=== PATIENT | female | born 1950 | race Caucasian/White ===

== ENCOUNTER 2023-10-22 09:05 | Outpatient (RCR) | payer BC, SELFPAY | END 2023-10-22 23:59 | disposition home or self-care (01) | LOC: RPT 09:05 | PROVIDERS: ATTENDING PHYSICIAN Orthopaedic Surgery Hand Surgery; FAMILY PHYSICIAN Family Medicine | DX: Z47.89 Encounter for other orthopedic aftercare (principal); Z73.6 Limitation of activities due to disability; M25.511 Pain in right shoulder | CPT/HCPCS: 97010; 97110; 97140; 97162 ==

== ENCOUNTER 2023-11-19 09:14 | Outpatient (RCR) | payer BC, SELFPAY | END 2023-11-19 23:59 | disposition home or self-care (01) | LOC: RPT 09:14 | PROVIDERS: ATTENDING PHYSICIAN Orthopaedic Surgery Hand Surgery; FAMILY PHYSICIAN Family Medicine | DX: Z47.89 Encounter for other orthopedic aftercare (principal); Z73.6 Limitation of activities due to disability; M25.511 Pain in right shoulder; M62.81 Muscle weakness (generalized) | CPT/HCPCS: 97010; 97110; 97140 ==

== ENCOUNTER 2023-12-18 08:57 | Outpatient (RCR) | payer BC, SELFPAY | END 2023-12-18 23:59 | disposition home or self-care (01) | LOC: RPT 08:57 | PROVIDERS: ATTENDING PHYSICIAN Orthopaedic Surgery Hand Surgery; FAMILY PHYSICIAN Family Medicine | DX: Z47.89 Encounter for other orthopedic aftercare (principal); Z73.6 Limitation of activities due to disability; M25.511 Pain in right shoulder | CPT/HCPCS: 97010; 97110; 97140 ==

== ENCOUNTER 2024-01-14 13:09 | Outpatient (RCR) | payer BC, SELFPAY | END 2024-01-14 14:11 | disposition home or self-care (01) | LOC: RPT 13:09 | PROVIDERS: ATTENDING PHYSICIAN Orthopaedic Surgery Hand Surgery; FAMILY PHYSICIAN Family Medicine | DX: Z47.89 Encounter for other orthopedic aftercare (principal); Z73.6 Limitation of activities due to disability; M25.511 Pain in right shoulder | CPT/HCPCS: 97010; 97110 ==

== ENCOUNTER → 2024-03-16 17:01 | Outpatient (REF) | payer BC, SELFPAY | LOC: RAD 17:01 | PROVIDERS: ATTENDING PHYSICIAN Physician Assistant | DX: R10.11 Right upper quadrant pain (principal); R10.13 Epigastric pain | CPT/HCPCS: 76700 ==

== ENCOUNTER 2024-05-08 06:05 | Day surgery (SDC) | payer BC, SELFPAY ==
[2024-04-27 09:14] LABS: ALT (SGPT) 31 U/L (0-35); AST (SGOT) 29 U/L (14-36); Albumin 4.2 g/dl (3.5-5.0); Alkaline Phosphatase 104 U/L (38-126); Blood Urea Nitrogen 9 mg/dl (7-17); Calcium 9.7 mg/dl (8.4-10.2); Carbon Dioxide 28 mmol/L (22-30); Chloride 105 mmol/L (98-107); Glucose 94 mg/dl (70-99); Potassium 4.4 mmol/L (3.5-5.1); Sodium 141 mmol/L (135-145); Total Bilirubin 0.4 mg/dl (0.2-1.3); Total Protein 6.2 g/dl (6.3-8.2); eGFR > 60.00
[2024-04-27 09:18] LABS: Hematocrit 35.1 % (37.0-47.0); Hemoglobin 12.2 g/dL (12.0-16.0); Mean Corp Hgb Conc. 34.8 g/dL (33.0-37.0); Mean Corpuscular Hgb 33.1 pg (27.0-31.0); Mean Corpuscular Volume 95.1 fL (81.0-99.0); Platelet Count 209 10^3/uL (130-400); Red Blood Cell Count 3.69 10^6/uL (4.20-5.40); Red Cell Dist. Width 12.6 % (11.5-14.5); White Blood Cell Count 7.1 10^3/uL (4.8-10.8)
[2024-04-27 09:56] VITALS: BMI 31.0
[2024-05-08] VITALS (19 sets, daily range): BP systolic 110–145; BP diastolic 41–121
[2024-05-08] MEDS: TYLENOL 1000 MG PO (06:42)
[2024-05-08] MEDS: NORMOSOL-R 1000 IV ×2 (06:45→09:00)
--- NOTE | 2024-05-08 09:06 | W.IMMPOSTOP ---
Addendum entered and electronically signed by Zain Coe MD 05/08/24 15:24:
[facility]#[id number]
Original Note:
Surgical Immed Post Op Note
-
Primary Surgeon: Carolin
Assisting Surgeon: MO Traore
Pre-op Diagnosis: Choledocholithiasis
Post-op Diagnosis: Choledocholithiasis
Procedure Performed: Laparoscopic cholecystectomy
Anesthesia Type: General
Specimen / Cultures:
1. Gallbladder
Estimated Blood Loss: 3 cc
Complications: None
Operative Findings:
1. Normal appearing GB, mild wall thickening, duodenal adhesions taken down sharply
2. Critical view of safety
3. IOC with dilated CBD and persistent distal CBD filling defect
4. Duct with clips and Endoloop, artery with clips
GI notified, will need ERCP, timing TBD
[2024-05-08] MEDS: DILAUDID 0.25 MG IV (10:43)
--- NOTE | 2024-05-08 11:15 | PTCARENOTE ---
Pt received from the PACU via bed. Transport was w/o incident. Pt is AAOx3, HRR, Lungs clear, resp.easy, pulse ox is 96%RA. Pt's abd with 5 Lap sites well approximated with surgi glue, no drainage noted. Pt denies pain or nausea at this time. Pt
instructed on plan of care, and signs and symptoms to report to the nursing staff. Pt verbalized understanding of instructions. Call guevara is within reach.
[2024-05-08] MEDS: DILAUDID 0.5 MG IV (13:22)
--- NOTE | 2024-05-08 14:18 | CON.GI ---
Addendum entered and electronically signed by Aleisha Preciado MD 05/08/24 17:06:
I saw and examined the patient.
The GAS BOOSTER ENGINEER's note was reviewed and I agree with the note.
-- Choledocholithiasis noted in IOC today. Liver test normal. Nonobstructive
-- S/p lap lisa 05/08
-- GERD/hiatal hernia/EGJ outflow obstruction status post dilation 04/2023 ( )
plan
Diet as per surgical team
Monitor LFT
Plan for ERCP with removal of CBD stone on Saturday
Original Note:
Consultation
-
Date/Time Consultation Requested: 05/08/24 1200
Date/Time Consultation Performed: 05/08/24 1400
Requesting Provider: Dr. Coe
Performing Provider: Dr. Preciado/AP Perez
Reason for Consultation: choledocholithiasis
Medical History
Chief Complaint / HPI
Chief Complaint: symptomatic cholelithiasis
History of Present Illness:
73-year-old female with past medical history of GERD, hiatal hernia, EGJ outflow obstruction status post dilatation, colon polyps, hyperlipidemia, depression, RAD, narcolepsy, chronic back pain who was admitted for cholecystectomy after being found
to have symptomatic cholelithiasis. Patient had a laparoscopic cholecystectomy with intraoperative cholangiogram today that identified the presence of choledocholithiasis. We are asked to evaluate for the same. The patient states that she was
having intermittent epigastric/right upper quadrant pain that would radiate through to her back. This will be associated with nausea and sde colored stools. The patient is feeling well postsurgery. She is having some mild discomfort at the
present time. She denies any fevers, chills, vomiting, melena, hematochezia. She does have history of intermittent dysphagia in the past. She is due for a follow-up with Dr. Olsen and likely EGD in the future secondary to EGJ outflow obstruction
with dilatation required. The patient states she gets more of a spasm currently.
Past Medical History
Past Medical History: GERD, Hypercholesterolemia and Other (Hiatal hernia,EGJ outflow obstruction, colon polyps, depression, RAD, narcolepsy, chronic back pain)
Past Surgical History: Cholecystectomy and Other (Discectomy, spine fusion, oophorectomy, appendectomy, tonsillectomy, bilateral cataracts, right shoulder rotator cuff)
Social History
Tobacco: Former Smoker
Alcohol: None
Drug: None
Employment: Employed
Family History
Family History: Other (Mother history of colon cancer, no other family members with gastrointestinal malignancy or IBD)
Allergies / Home Medications
Allergy/AdvReac Type Severity Reaction Status Date / Time
prochlorperazine edisylate Allergy Severe Anaphylaxis Verified 05/08/24 06:21
[From Compazine]
prochlorperazine maleate Allergy Severe Anaphylaxis Verified 05/08/24 06:21
[From Compazine]
penicillin G Allergy Intermediate Rash Verified 05/08/24 06:21
Penicillins Allergy Intermediate Rash Verified 05/08/24 06:21
Sulfa (Sulfonamide Allergy Intermediate Rash Verified 05/08/24 06:21
Antibiotics)
sulfisoxazole Allergy Intermediate Rash Verified 05/08/24 06:21
�Medication �Instructions �Recorded
pantoprazole 40 mg tablet,delayed 40 mg PO DAILY 01/25/14
release
acetaminophen 300 mg-codeine 30 mg 0.5 - 1 tab PO Q6HPRN PRN pain 05/19/21
tablet
aspirin 81 mg chewable tablet 81 mg PO MOWEFR 05/19/21
fluoxetine 20 mg capsule 60 mg PO DAILY 05/19/21
vitamin E (dl, acetate) 180 mg 800 units PO DAILY 05/19/21
(400 unit) capsule
zolpidem 10 mg tablet 10 mg PO HS 05/19/21
Reseveretrol 1 cap PO DAILY 06/02/21
glucosamine 500 mg-chondroit 400 1 ea PO DAILY 06/02/21
mg-vit C 2 mg-smith 0.33 mg
capsule (Cosamin DS (with
manganese))
Saccharomyces boulardii 250 mg 250 mg PO DAILY 04/29/24
capsule (Florastor)
acetaminophen 500 mg tablet 500 - 1,000 mg PO Q6H PRN pain 04/29/24
famotidine 40 mg tablet 40 mg PO DAILY PRN GERD 04/29/24
wxojcjmm-mqqe-mkjm 8 mg-folic 400 1 tab PO DAILY 04/29/24
mcg-K 50 mcg-lutein 300 mcg tablet
(Centrum Silver Women)
rosuvastatin 10 mg tablet 10 mg PO DAILY 04/29/24
Review of Systems
-
All other systems: A 12 pt ROS was Negative except as stated above in HPI
Vital Signs
Temp Pulse Resp BP Pulse Ox
98.4 F 68 16 110/67 96
05/08/24 13:46 05/08/24 13:46 05/08/24 13:46 05/08/24 13:46 05/08/24 13:46
Physical Exam
Exam
General: No Apparent Distress
HEENT: Anicteric
Respiratory: Clear (Anterior)
Cardiac: Regular Rhythm
GI: Soft, Non Tender (Mild incisional tenderness immediately postop), Non Distended and Normal Bowel Sounds
Skin: Warm and Dry
Neuro: AO x 3
Psych: Calm
Results
WBC 7.1 10^3/uL (4.8-10.8) 04/27/24 07:52
Hgb 12.2 g/dL (12.0-16.0) 04/27/24 07:52
Hct 35.1 % (37.0-47.0) L 04/27/24 07:52
MCV 95.1 fL (81.0-99.0) 04/27/24 07:52
Plt Count 209 10^3/uL (130-400) 04/27/24 07:52
Sodium 141 mmol/L (135-145) 04/27/24 07:52
Potassium 4.4 mmol/L (3.5-5.1) 04/27/24 07:52
Chloride 105 mmol/L (98-107) 04/27/24 07:52
Carbon Dioxide 28 mmol/L (22-30) 04/27/24 07:52
BUN 9 mg/dl (7-17) 04/27/24 07:52
Creatinine 0.8 mg/dL (0.6-1.0) 04/27/24:52
Calcium 9.7 mg/dl (8.4-10.2) 04/27/24:52
Total Bilirubin 0.4 mg/dl (0.2-1.3) 04/27/24 07:52
AST 29 U/L (14-36) 04/27/24 07:52
ALT 31 U/L (0-35) 04/27/24:52
Alkaline Phosphatase 104 U/L (38-126) 04/27/24 07:52
Diagnostic Image Results:
Intraoperative cholangiogram 05/08/2024: Images demonstrate contrast injection into the cystic duct with opacification of the biliary tree. The common bile duct is dilated. There is a filling defect in the distal common bile duct compatible with
choledocholithiasis. The stone however appears nonocclusive, with contrast coursing beyond the stone and opacifying the duodenum. See detailed report by the performing physician for further evaluation.
Prior GI Procedures:
EGD: 05/22/2023 ([facility])Chronic cough is likely secondary to intraesophageal
stasis. Attempted to treat the outflow obstruction by
dilating the bottom of the esophagus. Continue to
treat the reflux. Increase the pepcid at night to 40mg.
- Tortuous esophagus with a 3cm hiatal hernia. Dilated
to 20mm due to outflow obstruction on manometry.
- Gastritis.
- Mucosal changes in the duodenum.
- No specimens collected.
EGD: 12/05/2022 ([facility]): - Tortuous esophagus.
- Abnormal esophageal motility.
- Small hiatal hernia.
- Erythematous, granular and texture changed mucosa in
the antrum and prepyloric region of the stomach.
Biopsied.
- Several biopsies were obtained on the anterior wall
of the gastric body, on the posterior wall of the
gastric body, at the incisura, on the anterior wall of
the gastric antrum, on the posterior wall of the
gastric antrum and in the prepyloric region of the
stomach.
- Normal examined duodenum.
Colonoscopy: 06/28/2022 ([facility]): - Hemorrhoids found on perianal exam.
- Significant diverticulosis in the left colon with
rigidity and remodeling.
- One 8 mm polyp in the sigmoid colon, removed with a
cold snare. Resected and retrieved. Clip was placed.
- One 8 mm polyp in the sigmoid colon, removed with a
cold snare. Resected and retrieved.
- Post-polypectomy scar in the distal ascending colon.
- A tattoo was seen in the proximal ascending colon. A
post-polypectomy scar was found at the tattoo site.
Biopsied likely granulation tissue surrounding the
scar to rule out polyp.
- One 10 mm polyp in the cecum, removed with a cold
snare. Resected and retrieved.
[facility]- Tortuous colon.
- One 8 mm polyp in the ascending colon, removed with
a hot snare. Resected and retrieved.
- One 20 mm polyp in the ascending colon, s/p EMR.
Clips (MR conditional) were placed.
- Diverticulosis in the sigmoid colon
11/17/2021 colonoscopy ([facility]): - Hemorrhoids found on perianal exam.
- Diverticulosis in the left colon causing fibrotic
remodeling of the sigmoid and very difficult to
traverse. Used significant amount of fluid to get
through.
- Congested and erythematous mucosa in the entire
examined colon. Biopsied.
- One 10 mm polyp in the transverse colon, removed
with mucosal resection. Resected and retrieved.
Injected.
- Congested mucosa in the ascending colon. Biopsied.
Tattooed.
- One 3 mm polyp at the ileocecal valve, removed with
a jumbo cold forceps. Resected and retrieved.
- Mucosal resection was performed. Resection and
retrieval were complete.
11/07/2017 colonoscopy ([facility]): Hemorrhoids found on perianal exam.
- Diverticulosis in the entire examined colon.
- Internal hemorrhoids.
- One 10 mm polyp at the ileocecal valve, removed with a
hot snare. Resected and retrieved
01/26/2013 colonoscopy ([facility]): - Diverticulosis in the sigmoid colon and in the
descending colon.
- Internal hemorrhoids.
- Melanosis in the colon.
Assessment / Plan
-
73-year-old female with past medical history of GERD, hiatal hernia, EGJ outflow obstruction status post dilatation, colon polyps, hyperlipidemia, depression, RAD, narcolepsy, chronic back pain who was admitted for cholecystectomy after being found
to have symptomatic cholelithiasis. Patient had a laparoscopic cholecystectomy with intraoperative cholangiogram today that identified the presence of choledocholithiasis. We are asked to evaluate for the same.
Impression:
Choledocholithiasis-> some mild pain
s/p laparoscopic cholecystectomy 05/08/2024
GERD
Hiatal hernia
EGJ outflow obstruction status post dilatation-> patient starting to feel symptomatic again
Plan:
-ERCP to be performed this admission
-Continue pantoprazole
-Further recommendations to be forthcoming
-
-
Thank you for consultation and allowing me to participate in the patient's care. Please call the electrical high tension tester GI physician during the after hours with any questions or concerns.
[2024-05-08] MEDS: TYLENOL 650 MG PO (19:29)
[2024-05-08] MEDS: AMBIEN 10 MG PO (22:25)
[2024-05-09 03:00] VITALS: BP 134/65
[2024-05-09] MEDS: TYLENOL 650 MG PO ×2 (05:49→21:12)
[2024-05-09] MEDS: PROZAC 60 MG PO (07:25)
[2024-05-09] MEDS: PROTONIX 40 MG PO (07:25)
[2024-05-09 07:44] VITALS: BP 127/61
[2024-05-09 08:36] LABS: Hematocrit 31.8 % (37.0-47.0); Mean Corp Hgb Conc. 34.6 g/dL (33.0-37.0); Mean Corpuscular Hgb 32.3 pg (27.0-31.0); Mean Corpuscular Volume 93.3 fL (81.0-99.0); Red Blood Cell Count 3.41 10^6/uL (4.20-5.40); Red Cell Dist. Width 12.8 % (11.5-14.5); White Blood Cell Count 11.6 10^3/uL (4.8-10.8)
[2024-05-09 08:47] LABS: Mean Platelet Volume 12.1 fL (7.4-10.4); Platelet Count 188 10^3/uL (130-400)
[2024-05-09 09:56] LABS: ALT (SGPT) 192 U/L (0-35); AST (SGOT) 178 U/L (14-36); Albumin 3.9 g/dl (3.5-5.0); Alkaline Phosphatase 141 U/L (38-126); Blood Urea Nitrogen 9 mg/dl (7-17); Calcium 9.1 mg/dl (8.4-10.2); Carbon Dioxide 22 mmol/L (22-30); Chloride 101 mmol/L (98-107); Estimated Creatinine Clearance 62 ml/min; Glucose 73 mg/dl (70-99); Lipase 41 U/L (23-300); Potassium 4.5 mmol/L (3.5-5.1); Sodium 134 mmol/L (135-145); Total Bilirubin 0.6 mg/dl (0.2-1.3); eGFR > 60.00
[2024-05-09] MEDS: ROXICODONE 5 MG PO ×2 (11:07→17:25)
[2024-05-09 11:10] VITALS: BP 118/96
--- NOTE | 2024-05-09 11:52 | W.PN.GS2 ---
Today's Communication / Plan
-
LFD
Assessment / Plan
-
73 yo female POD #1 lap lisa with filling defect (not completely obstructed) awaiting ERCP with GI on Saturday
AFVSS
No n/v. Post op discomfort minimal
Mild transaminitis, normal bili and lipase
Mild leukocytosis
--Ok for LFD, will make NPO after MN for ERCP
--C/W analgesics as needed. PO meds ok. Hold NSAIDs given upcoming procedure
--Follow labs
--VTE ppx with lovenox and SCD's
Subjective Data
-
Date of Service: May 09, 2024
Patient seen and examined at bedside with Dr. Martin. Mild incisional pain. Notes she feels hungry. Denies n/v.
Objective Data
-
Intake and Output
05/08/24 05/09/24 05/10/24
06:59 06:59 06:59
Intake Total 1060 / 1060
Balance 1060 / 1060
Intake:
Oral fluids 960 / 960
IV fluids (Total) 100 / 100
normosol 100 / 100
Other:
Number of approximated SMALL 1
amounts of urine
Number of approximated MODERATE 2
amounts of urine
How many times incontinent 1
How many times incontinent 1
MODERATE amount urine
Vital Signs
Temp Pulse Resp BP Pulse Ox
97.3 F 54 17 127/61 95
05/09/24 07:44 05/09/24 07:44 05/09/24 07:44 05/09/24 07:44 05/09/24 07:44
Lab Results
05/09/24 06:59
05/09/24 06:59
Calcium 9.1 mg/dl (8.4-10.2) 05/09/24 06:59
Total Bilirubin 0.6 mg/dl (0.2-1.3) 05/09/24 06:59
AST 178 U/L (14-36) H 05/09/24 06:59
ALT 192 U/L (0-35) H 05/09/24 06:59
Alkaline Phosphatase 141 U/L (38-126) H 05/09/24 06:59
Total Protein 6.0 g/dl (6.3-8.2) L 05/09/24 06:59
Albumin 3.9 g/dl (3.5-5.0) 05/09/24 06:59
Physical Exam
-
NAD
ABD soft, ND, mild incisional tenderness
Incisions clear with intact dermabond, no erythema
[2024-05-09 12:16] VITALS: BP 118/96
[2024-05-09 15:15] VITALS: BP 126/56
--- NOTE | 2024-05-09 16:33 | CM ---
CM met with pt at bedside.
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 bed/bathroom on 2nd. 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
Pt ambulating in hallway.
PCP is Moy Jiménez and pharmacy is [facility] on [address]
No HC or SNF history.
Discharge dispo home no needs.
[2024-05-09] MEDS: LOVENOX 40 MG SC (17:22)
[2024-05-09] MEDS: AMBIEN 10 MG PO (21:08)
[2024-05-09 23:48] VITALS: BP 131/51
[2024-05-10 07:21] VITALS: BP 114/58
[2024-05-10] MEDS: PROTONIX 40 MG PO (08:12)
[2024-05-10] MEDS: PROZAC 60 MG PO (08:13)
[2024-05-10 09:44] LABS: Hematocrit 34.8 % (37.0-47.0); Hemoglobin 11.5 g/dL (12.0-16.0); Mean Platelet Volume 11.3 fL (7.4-10.4); Platelet Count 241 10^3/uL (130-400); Red Blood Cell Count 3.48 10^6/uL (4.20-5.40); Red Cell Dist. Width 12.8 % (11.5-14.5); White Blood Cell Count 9.9 10^3/uL (4.8-10.8)
[2024-05-10 10:05] LABS: ALT (SGPT) 179 U/L (0-35); AST (SGOT) 132 U/L (14-36); Alkaline Phosphatase 153 U/L (38-126); Blood Urea Nitrogen 6 mg/dl (7-17); Calcium 9.4 mg/dl (8.4-10.2); Carbon Dioxide 28 mmol/L (22-30); Chloride 101 mmol/L (98-107); Direct Bilirubin 0.2 mg/dl (0.0-0.4); Estimated Creatinine Clearance 62 ml/min; Glucose 91 mg/dl (70-99); Potassium 4.3 mmol/L (3.5-5.1); Sodium 138 mmol/L (135-145); Total Bilirubin 0.5 mg/dl (0.2-1.3); eGFR > 60.00
--- NOTE | 2024-05-10 11:52 | W.PN.UPDATE ---
Update Note
Progress Note Update
ERCP tomorrow
NPO after MN
[2024-05-10] MEDS: TYLENOL 650 MG PO ×2 (12:20→20:19)
--- NOTE | 2024-05-10 12:28 | W.PN.GS2 ---
Today's Communication / Plan
-
NPO after MN for ERCP
Assessment / Plan
-
73 yo female POD #2 lap lisa with filling defect (not completely obstructed) awaiting ERCP with GI on Saturday
AFVSS
No n/v. Post op discomfort minimal
Mild transaminitis, normal bili
Mild leukocytosis which resolved
--Ok for LFD, will make NPO after MN for ERCP
--C/W analgesics as needed. PO meds ok. Hold NSAIDs given upcoming procedure
--VTE ppx with lovenox and SCD's
Subjective Data
-
Date of Service: May 10, 2024
Patient seen and examined at bedside with Dr. Martin. Denies n/v. Tolerating diet. Mild incisional sorenss.
Objective Data
-
Intake and Output
05/09/24 05/10/24 05/11/24
06:59 06:59 06:59
Intake Total 1060 / 1060 480 / 480
Balance 1060 / 1060 480 / 480
Intake:
Oral fluids 960 / 960 480 / 480
IV fluids (Total) 100 / 100
normosol 100 / 100
Other:
Number of approximated SMALL 1
amounts of urine
Number of approximated MODERATE 2 8 1
amounts of urine
How many times incontinent 1
How many times incontinent 1
MODERATE amount urine
Vital Signs
Temp Pulse Resp BP Pulse Ox
99 F 66 16 114/58 91
05/10/24 07:21 05/10/24 07:21 05/10/24 07:21 05/10/24 07:21 05/10/24 07:21
Lab Results
05/10/24 08:28
05/10/24 08:28
Calcium 9.4 mg/dl (8.4-10.2) 05/10/24 08:
Total Bilirubin 0.5 mg/dl (0.2-1.3) 05/10/24:
Direct Bilirubin 0.2 mg/dl (0.0-0.4) 05/10/24 08:
AST 132 U/L (14-36) H 05/10/24 08:
ALT 179 U/L (0-35) H 05/10/24:
Alkaline Phosphatase 153 U/L (38-126) H 05/10/24:
Total Protein 6.0 g/dl (6.3-8.2) L 05/10/24:
Albumin 4.0 g/dl (3.5-5.0) 05/10/24:
Physical Exam
-
NAD
ABD soft, ND, mild incisional tenderness
Incisions clear with intact dermabond, no erythema
[2024-05-10 15:17] VITALS: BP 147/51
[2024-05-10] MEDS: LOVENOX 40 MG SC (17:25)
[2024-05-10] MEDS: AMBIEN 10 MG PO (21:08)
[2024-05-10 23:00] VITALS: BP 138/58
[2024-05-11] VITALS (9 sets, daily range): BP systolic 14–171; BP diastolic 54–80
--- NOTE | 2024-05-11 07:04 | W.PN.GS2 ---
Addendum entered and electronically signed by King Navarrete MD 05/11/24 11:49:
I saw and examined the patient independently.
The resident's note was reviewed and I agree with the note, assessment and plan except where noted below.
Comment: 73-year-old female postoperative day 3 from a lap lisa with positive IOC plan for ERCP today.
N.p.o., IV fluids. Low-fat diet can resume after procedure per GI.
General surgery will follow peripherally, discharge instructions updated.
Original Note:
Today's Communication / Plan
-
ERCP today with GI
Assessment / Plan
-
73 yo female POD #3 lap lisa with filling defect (not completely obstructed) awaiting ERCP for today with GI
AFVSS
Mild transaminitis, normal bili post op
-Tolerated LFD; NPO after MN for ERCP
-Diet after ERCP defer to GI
-C/W analgesics as needed.
DVT prophylaxis: Lovenox and SCD's
Time Spent
Total Time Spent with Patient (in minutes): 15
Subjective Data
-
Date of Service: May 11, 2024
Denies n/v. Tolerating diet. Mild incisional soreness
Objective Data
-
Intake and Output
05/10/24 05/11/24 05/12/24
06:59 06:59 06:59
Intake Total 1500 / 1500
Balance 1500 / 1500
Intake:
Oral fluids 1500 / 1500
Other:
Number of approximated MODERATE 8 2
amounts of urine
Vital Signs
Temp Pulse Resp BP Pulse Ox
98.5 F 68 18 138/58 94
05/10/24 23:00 05/10/24 23:00 05/10/24 23:00 05/10/24 23:00 05/10/24 23:00
Lab Results
05/10/24 08:28
05/10/24 08:
Calcium 9.4 mg/dl (8.4-10.2) 05/10/24 08:
Total Bilirubin 0.5 mg/dl (0.2-1.3) 05/10/24 08:
Direct Bilirubin 0.2 mg/dl (0.0-0.4) 05/10/24:
AST 132 U/L (14-36) H 05/10/24 08:
ALT 179 U/L (0-35) H 05/10/24 08:
Alkaline Phosphatase 153 U/L (38-126) H 05/10/24:
Total Protein 6.0 g/dl (6.3-8.2) L 05/10/24 08:
Albumin 4.0 g/dl (3.5-5.0) 05/10/24 08:
Physical Exam
-
General: No apparent distress
Abdominal: Soft, nondistended, mild incisional tenderness, minimal ecchymosis near the incision site, incisions intact.
--- NOTE | 2024-05-11 10:37 | CM ---
Reviewed the chart notes. Per notes, ERCP today with GI. CM continues to be available to patient/family and is monitoring medical plan for needs at discharge.
Plan: Discharge to home when medically stable. No anticipated needs identified at this time.
--- NOTE | 2024-05-11 13:55 | PTCARENOTE ---
Addendum entered by Maria Luisa Brasher RN 05/11/24 17:29:
pt returned to room from PACU at 1725. pt arrived awake and alert but drowsy. pt assisted from stretcher to bed. will observe.
Original Note:
assumed care of pt from previous shift at 0715. pt AAO and ambulatory in room and hallway independently. NPO since midnight awaiting GI procedure. report given to Roxana in GI lab. pt instructed to empty her bladder and remove her sweatpants.
transported via stretcher to GI lab accompanied by volunteer.
[2024-05-11] MEDS: LOVENOX SC (18:18)
[2024-05-11] MEDS: PROTONIX 40 MG PO (18:43)
[2024-05-11] MEDS: PROZAC 60 MG PO (18:43)
[2024-05-11] MEDS: TYLENOL 650 MG PO (21:29)
[2024-05-11] MEDS: AMBIEN 10 MG PO (21:29)
[2024-05-12 03:06] VITALS: BP 101/65
[2024-05-12 07:04] VITALS: BP 134/57
[2024-05-12] MEDS: PROTONIX 40 MG PO (07:54)
[2024-05-12] MEDS: PROZAC 60 MG PO (07:54)
--- NOTE | 2024-05-12 08:05 | W.PN.GS2 ---
Addendum entered and electronically signed by Zain Coe MD 05/12/24 08:12:
Patient seen and examined.
No complaints. Feels much improved. Denies any abdominal pain. No nausea or vomiting. No fevers.
Gen: NAD
Abd: soft, NT/ND, non-peritoneal, incisions c/d/i - no erythema, ecchymosis or drainage
Patient is a 73 yo F POD#4 s/p laparoscopic cholecystectomy with IOC notable for choledocholithiasis
PPD#1 s/p ERCP
AVSS
Repeat labs pending
Recovering well. No postoperative concerns.
-- LFD
-- Pain control: Tylenol, Toradol, Oxycodone
-- No need for further abx
-- HLIV
-- Home medications
-- DVT: Lovenox
-- DC today
Original Note:
Today's Communication / Plan
-
Okay for discharge from surgical standpoint
Follow-up with GS in 2 to 3 weeks
Assessment / Plan
-
73 yo female POD #4 lap lisa with positive IOC-s/p ERCP on 05/11/2024.
AFVSS
Mild transaminitis, normal bili post op- 05/12/24 labs pending
-Advancement of diet to low-fat
-C/W analgesics as needed.
-Okay to be discharged from surgical standpoint
DVT prophylaxis: Lovenox and SCD's
Time Spent
Total Time Spent with Patient (in minutes): 15
Subjective Data
-
Date of Service: May 12, 2024
Interval data: Reports significant improvement in pain after ERCP. Denies nausea and vomiting.
Objective Data
-
Intake and Output
05/11/24 05/12/24 05/13/24
06:59 06:59 06:59
Intake Total 1500 / 1500 600 / 600
Balance 1500 / 1500 600 / 600
Intake:
Oral fluids 1500 / 1500 600 / 600
Other:
Number of approximated MODERATE 2 2
amounts of urine
Vital Signs
Temp Pulse Resp BP Pulse Ox
98.8 F 62 16 134/57 96
05/12/24 07:04 05/12/24 07:04 05/12/24 07:04 05/12/24 07:04 05/12/24 07:04
Calcium 9.4 mg/dl (8.4-10.2) 05/10/24 08:28
Total Bilirubin 0.5 mg/dl (0.2-1.3) 05/10/24 08:28
Direct Bilirubin 0.2 mg/dl (0.0-0.4) 05/10/24 08:28
AST 132 U/L (14-36) H 05/10/24 08:28
ALT 179 U/L (0-35) H 05/10/24 08:28
Alkaline Phosphatase 153 U/L (38-126) H 05/10/24 08:28
Total Protein 6.0 g/dl (6.3-8.2) L 05/10/24 08:28
Albumin 4.0 g/dl (3.5-5.0) 05/10/24 08:28
Physical Exam
-
General: No apparent distress
Abdominal: Soft, nondistended, mild incisional tenderness, minimal ecchymosis near the incision site, incisions intact
[2024-05-12 08:28] LABS: Hematocrit 34.3 % (37.0-47.0); Hemoglobin 11.7 g/dL (12.0-16.0); Mean Corp Hgb Conc. 34.1 g/dL (33.0-37.0); Mean Corpuscular Hgb 33.1 pg (27.0-31.0); Mean Corpuscular Volume 96.9 fL (81.0-99.0); Mean Platelet Volume 11.3 fL (7.4-10.4); Platelet Count 247 10^3/uL (130-400); Red Blood Cell Count 3.54 10^6/uL (4.20-5.40); Red Cell Dist. Width 12.3 % (11.5-14.5); White Blood Cell Count 9.2 10^3/uL (4.8-10.8)
[2024-05-12 08:43] LABS: ALT (SGPT) 319 U/L (0-35); AST (SGOT) 457 U/L (14-36); Albumin 3.6 g/dl (3.5-5.0); Alkaline Phosphatase 271 U/L (38-126); Blood Urea Nitrogen 9 mg/dl (7-17); Calcium 9.2 mg/dl (8.4-10.2); Carbon Dioxide 25 mmol/L (22-30); Chloride 104 mmol/L (98-107); Estimated Creatinine Clearance 62 ml/min; Glucose 125 mg/dl (70-99); Potassium 3.7 mmol/L (3.5-5.1); Sodium 136 mmol/L (135-145); Total Bilirubin 1.9 mg/dl (0.2-1.3); Total Protein 5.8 g/dl (6.3-8.2); eGFR > 60.00
--- NOTE | 2024-05-12 08:59 | W.PN.GI.CBS2 ---
Addendum entered and electronically signed by Shaw Stewart MD 05/12/24 14:12:
I saw and examined the patient.
The ASPHALT MIXING MACHINE OPERATOR or PA's note was reviewed and I agree with the note.
Comment: Feels well. Denies abd pain. Getting ready to eat lunch
ABD soft NTND
REC:
LFTs up a little but could be from sphincterotomy, edema.
She feels well, no pain. OK for d/c if she tolerates lunch
Original Note:
Today's Communication / Plan
-
s/p ERCP 05/[address] Preciado- CBD moderate dilation , choledocholithiasis/sludge found with sphincterotomy and balloon extraction
some rise in LFt's today bili 1.9, AST 457, ALT 319, ALk phos 271 but denies abdominal pain at rest
will trial low fat diet this am if tolerates diet consider discharge later today
reviewed with patient if discharged today return for fever, chill or recurrent abdominal pain
cont PPI daily on prior to admission
Assessment / Plan
-
73-year-old female with past medical history of GERD, hiatal hernia, EGJ outflow obstruction status post dilatation, colon polyps, hyperlipidemia, depression, RAD, narcolepsy, chronic back pain who was admitted for cholecystectomy after being found
to have symptomatic cholelithiasis. Patient had a laparoscopic cholecystectomy with intraoperative cholangiogram today that identified the presence of choledocholithiasis. We are asked to evaluate for the same.
Impression:
Choledocholithiasis s/p ERCP 05/12
s/p laparoscopic cholecystectomy 05/08/2024
GERD
Hiatal hernia
EGJ outflow obstruction status post dilatation-> patient starting to feel symptomatic again
Plan:
s/p ERCP 05/[address] Preciado- CBD moderate dilation , choledocholithiasis/sludge found with sphincterotomy and balloon extraction
some rise in LFt's today bili 1.9, AST 457, ALT 319, ALk phos 271 but denies abdominal pain at rest
will trial low fat diet this am if tolerates diet consider discharge later today
reviewed with patient if discharged today return for fever, chill or recurrent abdominal pain
cont PPI daily on prior to admission
Subjective
Subjective
Date of Service: May 12, 2024
low fat diet, no stools
Objective
Data Reviewed
Laboratory Data:
Laboratory Results
05/12/24 07:56
05/12/24 07:56
Laboratory Results
Total Bilirubin 1.9 mg/dl (0.2-1.3) H D 05/12/24 07:56
AST 457 U/L (14-36) H 05/12/24 07:56
ALT 319 U/L (0-35) H 05/12/24 07:56
Alkaline Phosphatase 271 U/L (38-126) H 05/12/24 07:56
Lipase 41 U/L (23-300) 05/09/24 06:59
Vital Signs and I&O:
Vital Signs
Temp Pulse Resp BP Pulse Ox
98.8 F 62 16 134/57 96
05/12/24 07:04 05/12/24 07:04 05/12/24 07:04 05/12/24 07:04 05/12/24 07:04
I&O
05/11/24 05/12/24 05/13/24
06:59 06:59 06:59
Intake Total 1500 / 1500 600 / 600
Balance 1500 / 1500 600 / 600
Physical Exam
Physical Exam
HEENT: Anicteric and Moist mucous membranes
Cardiology: Normal Sinus Rhythm
Pulmonary: Clear
GI: Soft, Non Distended and Tender (mild around incisional sites )
Extremities: No Edema
Neuro: Non Focal
--- NOTE | 2024-05-12 10:52 | CM ---
Case management following for discharge planning
Chart reviewed. Met with pt
Poss discharge today
Has ride home with son
Plan - anticipate home no needs when medically stable
[2024-05-12 13:50] VITALS: BP 143/61
== END 2024-05-12 14:55 | disposition home or self-care (01) ==
LOC: SDS 06:05
PROVIDERS: Registered Nurse; ATTENDING PHYSICIAN Surgery; CONSULT PHYSICIAN Internal Medicine Gastroenterology; FAMILY PHYSICIAN Family Medicine
DX: K80.44 Calculus of bile duct with chronic cholecystitis without obstruction (principal); R93.2 Abnormal findings on diagnostic imaging of liver and biliary tract; R74.01 Elevation of levels of liver transaminase levels; D72.829 Elevated white blood cell count, unspecified; K21.9 Gastro-esophageal reflux disease without esophagitis; K44.9 Diaphragmatic hernia without obstruction or gangrene
CPT/HCPCS: 47563; 43264; 43262; 88304; 36415; 74300; 74330; 76000; 80053; 82248; 83690; 85027; 93005; C1769

== ENCOUNTER → 2024-08-13 14:49 | Outpatient (REF) | payer BC, SELFPAY | LOC: WDC 14:49 | PROVIDERS: ATTENDING PHYSICIAN Family Medicine | DX: Z12.31 Encounter for screening mammogram for malignant neoplasm of breast (principal) | CPT/HCPCS: 77063; 77067 ==

== ENCOUNTER → 2024-09-30 12:03 | Outpatient (REF) | payer BC, SELFPAY | LOC: REG 12:03 | PROVIDERS: ATTENDING PHYSICIAN Physician Assistant | DX: R30.0 Dysuria (principal) | CPT/HCPCS: 87077; 87086; 87186 ==

== ENCOUNTER → 2024-10-03 08:37 | Outpatient (REF) | payer BC, SELFPAY ==
[2024-10-03 10:20] LABS: % Basophils 0.8 % (0-2); % Immature Granulocytes 0.3 % (0-0.5); % Lymphocytes 16.1 % (20.5-51.1); % Monocytes 8.7 % (1.7-9.3); % Neutrophils 71.1 % (42.2-75.2); Absolute Basophils 0.1 10^3/uL (0-0.2); Absolute Eosinophils 0.2 10^3/uL (0-0.7); Absolute Lymphocytes 1.1 10^3/uL (1.2-3.4); Absolute Monocytes 0.6 10^3/uL (0.1-0.6); Absolute Neutrophils 4.7 10^3/uL (1.4-6.5); Hematocrit 40.4 % (37.0-47.0); Hemoglobin 12.8 g/dL (12.0-16.0); Mean Corp Hgb Conc. 31.7 g/dL (33.0-37.0); Mean Corpuscular Hgb 31.4 pg (27.0-31.0); Mean Corpuscular Volume 99.3 fL (81.0-99.0); Mean Platelet Volume 10.9 fL (7.4-10.4); Nucleated Red Blood Cells % 0 %; Platelet Count 294 10^3/uL (130-400); Red Blood Cell Count 4.07 10^6/uL (4.20-5.40); Red Cell Dist. Width 12.7 % (11.5-14.5); White Blood Cell Count 6.6 10^3/uL (4.8-10.8)
[2024-10-03 11:03] LABS: ALT (SGPT) 28 U/L (0-35); AST (SGOT) 34 U/L (14-36); Albumin 4.4 g/dl (3.5-5.0); Alkaline Phosphatase 94 U/L (38-126); Blood Urea Nitrogen 10 mg/dl (7-17); Calcium 9.5 mg/dl (8.4-10.2); Carbon Dioxide 30 mmol/L (22-30); Chloride 103 mmol/L (98-107); Glucose 97 mg/dl (70-99); HDL Cholesterol 77 mg/dl; LDL Cholesterol, Calculated 73 mg/dl; Potassium 4.7 mmol/L (3.5-5.1); Sodium 141 mmol/L (135-145); Total Bilirubin 0.6 mg/dl (0.2-1.3); Total Cholesterol 167 mg/dl (50-199); Total Protein 6.6 g/dl (6.3-8.2); Triglyceride 87 mg/dl (10-149); Very Low Density Lipoprotein 17 mg/dl (0-30); eGFR > 60.00
[2024-10-03 11:16] LABS: Glycohemoglobin (HgbA1c) 5.6 % (4.0-5.6)
== END ==
LOC: REG 08:37
PROVIDERS: ATTENDING PHYSICIAN Family Medicine; REFERRING PHYSICIAN Internal Medicine
DX: D50.9 Iron deficiency anemia, unspecified (principal); E78.00 Pure hypercholesterolemia, unspecified; R79.9 Abnormal finding of blood chemistry, unspecified; R73.09 Other abnormal glucose; R94.5 Abnormal results of liver function studies
CPT/HCPCS: 36415; 80053; 80061; 83036; 85025

== ENCOUNTER → 2024-10-13 09:46 | Outpatient (REF) | payer BC, SELFPAY | LOC: RAD 09:46 | PROVIDERS: ATTENDING PHYSICIAN Internal Medicine; FAMILY PHYSICIAN Family Medicine | DX: R13.12 Dysphagia, oropharyngeal phase (principal) | CPT/HCPCS: 74246 ==

== ENCOUNTER 2024-11-03 06:24 | Day surgery (SDC) | payer BC, SELFPAY | END 2024-11-03 10:09 | disposition home or self-care (01) | LOC: GI 06:24 | PROVIDERS: ATTENDING PHYSICIAN Internal Medicine; FAMILY PHYSICIAN Family Medicine | DX: K31.A19 Gastric intestinal metaplasia without dysplasia, unspecified site (principal); K21.9 Gastro-esophageal reflux disease without esophagitis; K44.9 Diaphragmatic hernia without obstruction or gangrene; K29.70 Gastritis, unspecified, without bleeding; K31.89 Other diseases of stomach and duodenum; Q39.8 Other congenital malformations of esophagus | CPT/HCPCS: 43239; 88305; 88342 ==

== ENCOUNTER 2025-06-14 11:01 | Outpatient (RCR) | payer BC, SELFPAY | END 2025-06-14 23:59 | disposition home or self-care (01) | LOC: RPT 11:01 | PROVIDERS: ATTENDING PHYSICIAN Orthopaedic Surgery; FAMILY PHYSICIAN Family Medicine | DX: M17.0 Bilateral primary osteoarthritis of knee (principal); Z73.6 Limitation of activities due to disability; M62.81 Muscle weakness (generalized); R26.89 Other abnormalities of gait and mobility; M25.562 Pain in left knee; M25.561 Pain in right knee | CPT/HCPCS: 97110; 97162; 97530 ==

== ENCOUNTER 2025-07-09 08:37 | Outpatient (RCR) | payer BC, SELFPAY | END 2025-07-09 23:59 | disposition home or self-care (01) | LOC: RPT 08:37 | PROVIDERS: ATTENDING PHYSICIAN Orthopaedic Surgery; FAMILY PHYSICIAN Family Medicine | DX: M17.0 Bilateral primary osteoarthritis of knee (principal); Z73.6 Limitation of activities due to disability; M62.81 Muscle weakness (generalized); R26.89 Other abnormalities of gait and mobility; M25.562 Pain in left knee; M25.561 Pain in right knee | CPT/HCPCS: 97110; 97530 ==

== ENCOUNTER 2025-07-19 08:00 | Emergency (ER) | payer BC, SELFPAY ==
[2025-07-19 08:06] VITALS: BP 148/63
--- NOTE | 2025-07-19 08:33 | ED.GENMED ---
History of Present Illness
<Breanne Marcum MD, Resident - Last Filed: 07/19/25 15:36>
General
Chief Complaint: Flank Pain
Source: patient
Time Seen by Provider: 07/19/25 08:14
History of Present Illness
History of Present Illness:
75-year-old female past medical history of GERD, hiatal hernia, narcolepsy, hyperlipidemia, chronic back pain, EGD status post dilation presents to the ER with right-sided flank pain. Started on Saturday morning as a dull pain that progressively got
worse. Started to become constant on Saturday. Today she rates the pain 8 out of 10. Radiates to the right intercostal spaces. She describes the pain as constant however with moments of flashing severe pain. Laying on her left side makes it
slightly better. Certain positions make it worse. This morning she noticed blood in her urine. She endorses chills however denies any fevers, chest pain, heart palpitations, shortness of breath, lightheadedness or dizziness, nausea, vomiting,
diarrhea, constipation, numbness or tingling, loss of bowel or bladder movements.
Past History
<Breanne Marcum MD, Resident - Last Filed: 07/19/25 15:36>
Past History
ED Past Medical History: GERD, Hypercholesterolemia and Other (DDD)
ED Past Surgical History: Gynecological and Orthopedic
Social History
Tobacco: Former smoker (quite 44 years ago)
Alcohol: None
Drug: None
Personal:
Employment: Employed
Family History
Family History: Other (mom -colon cancer. dad - [place] )
Review of Systems
<Breanne Marcum MD, Resident - Last Filed: 07/19/25 15:36>
Review of Systems
Allergies reviewed?: Yes
Constitutional: Reports chills
EENT: Reports no symptoms
Respiratory: Reports no symptoms
Cardiac: Reports no symptoms
ABD/GI: Reports no symptoms
: Reports dysuria, frequency, flank pain, urgency and bleeding
Musculoskeletal: Reports back pain (Right flank )
Skin: Reports no symptoms
Neurological: Reports no symptoms
Hematologic/Lymphatic: Reports no symptoms
Phy Exam
<Breanne Marcum MD, Resident - Last Filed: 07/19/25 15:36>
Physical Exam
Physical Exam:
General: Nontoxic, in pain
Head: Atraumatic
Cardiac: Regular S1-S2, no murmurs
Pulmonary: Clear breath sounds bilaterally
Abdomen: Soft, nontender, normal bowel sounds x 4, nondistended, no CVA tenderness
Musculoskeletal: No thoracic or vertebral tenderness with palpation, no lumbar paravertebral muscle tenderness to palpation
Extremities: No peripheral edema
Neurological: Nonfocal, awake alert and oriented
Psych: Pleasant mood
Course
<Breanne Marcum MD, Resident - Last Filed: 07/19/25 15:36>
Orders/Labs/Results
Orders:
Orders
07/19/25 08:32
CT Abd/pel Without Iv Or Oral Urgent
Comment:
Reason For Exam: right sided flank pain
07/19/25 08:51
Complete Blood Count/With Diff Urgent
Comprehensive Metabolic Panel Urgent
07/19/25 10:21
Ketorolac [Toradol] 15 mg IV NOW STA
07/19/25 10:35
Urinalysis Reflex To Culture Urgent
Date Specimen was Collected: 07/19/25
Time Specimen was Collected: 10:25
Urine Microscopic Reflex Cult Urgent
Urine Culture Urgent
SHIRA Source: U
Specimen Description:
Date Specimen was Collected: 07/19/25
Time Specimen was Collected: 10:25
Abnormal Lab Results
07/19/25 07/19/25
08:51 10:35
RBC 4.02 L 10^6/uL
(4.20-5.40)
MCV 102.7 H fL
(81.0-99.0)
MCH 32.1 H pg
(27.0-31.0)
MCHC 31.2 L g/dL
(33.0-37.0)
Absolute Neuts (auto) 7.4 H 10^3/uL
(1.4-6.5)
Absolute Lymphs (auto) 1.0 L 10^3/uL
(1.2-3.4)
Absolute Monos (auto) 0.7 H 10^3/uL
(0.1-0.6)
Neutrophils % 79.6 H %
(42.2-75.2)
Lymphocytes % 10.7 L %
(20.5-51.1)
Glucose 110 H mg/dl
(70-99)
Ur Occult Blood Reflex 3+ A
(Negative)
Leukocyte Esterase Rfl 2+ A
(Negative)
Urine RBC 3-6 A /HPF
(0-2)
Urine Bacteria (Reflex) Few A
(Negative)
Urine Albumin (Reflex) 1+ A
(Neg - Trace)
07/19/25 08:51
07/19/25 08:51
Vital Signs
Initial and Last Documented VS:
Initial Vital Signs
Temp Pulse Resp BP Pulse Ox
98.9 F 68 18 148/63 94
07/19/25 08:06 07/19/25 08:06 07/19/25 08:06 07/19/25 08:06 07/19/25 08:06
Last Documented Vital Signs
Temp Pulse Resp BP Pulse Ox
98.6 F 57 16 147/56 96
07/19/25 11:54 07/19/25 11:54 07/19/25 11:54 07/19/25 11:54 07/19/25 11:54
<Tahir H. [place], DO - Last Filed: 07/19/25 09:31>
Orders/Labs/Results
Orders:
Orders
07/19/25 08:32
CT Abd/pel Without Iv Or Oral Urgent
Comment:
Reason For Exam: right sided flank pain
07/19/25 08:51
Complete Blood Count/With Diff Urgent
Comprehensive Metabolic Panel Urgent
07/19/25 10:21
Ketorolac [Toradol] 15 mg IV NOW STA
07/19/25 10:35
Urinalysis Reflex To Culture Urgent
Date Specimen was Collected: 07/19/25
Time Specimen was Collected: 10:25
Urine Microscopic Reflex Cult Urgent
Urine Culture Urgent
SHIRA Source: U
Specimen Description:
Date Specimen was Collected: 07/19/25
Time Specimen was Collected: 10:25
Abnormal Lab Results
07/19/25 07/19/25
08:51 10:35
RBC 4.02 L 10^6/uL
(4.20-5.40)
MCV 102.7 H fL
(81.0-99.0)
MCH 32.1 H pg
(27.0-31.0)
MCHC 31.2 L g/dL
(33.0-37.0)
Absolute Neuts (auto) 7.4 H 10^3/uL
(1.4-6.5)
Absolute Lymphs (auto) 1.0 L 10^3/uL
(1.2-3.4)
Absolute Monos (auto) 0.7 H 10^3/uL
(0.1-0.6)
Neutrophils % 79.6 H %
(42.2-75.2)
Lymphocytes % 10.7 L %
(20.5-51.1)
Glucose 110 H mg/dl
(70-99)
Ur Occult Blood Reflex 3+ A
(Negative)
Leukocyte Esterase Rfl 2+ A
(Negative)
Urine RBC 3-6 A /HPF
(0-2)
Urine Bacteria (Reflex) Few A
(Negative)
Urine Albumin (Reflex) 1+ A
(Neg - Trace)
07/19/25 08:51
07/19/25 08:51
Vital Signs
Initial and Last Documented VS:
Initial Vital Signs
Temp Pulse Resp BP Pulse Ox
98.9 F 68 18 148/63 94
07/19/25 08:06 07/19/25 08:06 07/19/25 08:06 07/19/25 08:06 07/19/25 08:06
Last Documented Vital Signs
Temp Pulse Resp BP Pulse Ox
98.6 F 57 16 147/56 96
07/19/25 11:54 07/19/25 11:54 07/19/25 11:54 07/19/25 11:54 07/19/25 11:54
<Breanne Marcum MD, Resident - Last Filed: 07/19/25 15:36>
MDM/Problems Addressed
Differential Diagnosis Includes:
Nephrolithiasis, urinary tract infection, pyelonephritis, aortic dissection, muscle strain, AAA
MDM/Problems Addressed:
UA, CBC, CMP, noncontrast CT to evaluate for kidney stones, renal function, hemoglobin levels and UTI.
Hemodynamically stable with no chest pain makes aortic dissection unlikely. Afebrile with no CVA tenderness also decreases likelihood of pyelonephritis.
CT did not reveal kidney stone, or any other acute etiology to explain flank pain. UA reveals LE 2+, few bacteria, 3+ occult blood, squamous cell 3-5. UTI is most probable cause as CT unrevealing. Will start the patient on keflex as she has
tolerated it well in the past. In addition recommend follow up for hematuria with PCP.
Chronic conditions affecting care: CAD, Arrhythmia and PVD
<Breanne Marcum MD, Resident - Last Filed: 07/19/25 15:36>
*Pulse Oximetry
SaO2: 94
Oxygen Mode of Delivery: Room air
Patient hypoxic: no
*Critical Care Note
Total Time (30-74mins, 75-104mins- exclusive of procedures): Not Applicable
Data Reviewed
Review of Other/Old Records Reveals: Labs (Hemoglobin noted to be stable around 12.8 on 10/03/2024, MCV elevated at 99.3) and Radiology Studies (Upper GI series on 10/13/2024 revealed reducible sliding hiatal hernia.)
Source: patient
ED Attending Note
<Breanne Marcum MD, Resident - Last Filed: 07/19/25 15:36>
-
Portions of this chart may have been created with voice recognition software.� Occasional wrong word or��sound alike� substitutions may have occurred due to the inherent limitations of voice recognition software.
<Tahir Gomez, - Last Filed: 07/19/25 09:31>
ED Attending Note
Patient seen and examined by attending physician: Yes
I performed a history and physical exam of patient and discussed management with resident, I reviewed resident's note and agree with documented findings and plan of care.: Yes
ED Attending Note:
I agree with Breanne's note
Patient presents complaint right flank pain. Began having discomfort approximately 3 days ago which became more intense over the past 24 hours. She noted some blood in her urine over the past 24 hours. No fever or chills. No nausea or vomiting.
General: Awake, Alert, Oriented X3. No acute distress.
Vitals: unremarkable
Head: Atraumatic
Eyes: Pupils equal, EOMI
Throat: Airway intact, no exudates
Neck: Trachea midline
Lungs: Clear and equal b/l
Heart: Regular rate, no murmurs
Abd: Soft, Nontender, No pulsatile mass
Back: No significant CVA tenderness to percussion
Neuro: Nonfocal
Skin: Warm, dry, no rash, increased erythema noted on the right flank secondary to recent heating pad use
Extremities: pulses equal b/l, no edema
Suspect urinary tract infection versus kidney stone.
Discharge Plan
Departure
Patient Disposition: Home (Routine Discharge)
Date of Disposition: 07/19/25
Time of Disposition: 11:37
Patient with high blood pressure during this ER visit?: Yes
Discharge Problem:
Acute UTI
Instructions: Urinary tract infection in adults - ED (DC)
Prescriptions:
New
cephalexin 500 mg capsule
500 mg PO BID 5 Days Qty: 10 0RF
No Action
pantoprazole 40 MG tablet,delayed release (DR/EC)
40 mg PO DAILY
acetaminophen-codeine 1 TABLET tablet
0.5 - 1 tab PO Q6HPRN PRN (Reason: pain)
aspirin 81 MG tablet,chewable
81 mg PO MOWEFR
zolpidem 10 MG tablet
10 mg PO HS
fluoxetine 20 MG capsule
60 mg PO DAILY
vitamin E (dl, acetate) 400 UNITS capsule
800 units PO DAILY
Cosamin DS (with manganese) 1 EACH capsule
1 ea PO DAILY
Reseveretrol 1 CAPSULE Capsule
1 cap PO DAILY
famotidine 40 mg Tablet
40 mg PO DAILY PRN (Reason: GERD)
acetaminophen 500 mg Tablet
500 - 1,000 mg PO Q6H PRN (Reason: pain)
rosuvastatin 10 mg Tablet
10 mg PO DAILY
Saccharomyces boulardii [Florastor] 250 mg Capsule
250 mg PO DAILY
Centrum Silver Women 8 mg iron-400 mcg-50 mcg Tablet
1 tab PO DAILY
Referrals:
Moy Johnson MD [Family Provider, Family Practice]
Activity Restrictions/Additional Instructions:
Please take cephalexin 500mg twice daily for 5 days. Please follow up with Dr. Johnson for evaluation of hematuria. It is likely due to UTI, however a repeat U/A to evaluate if it is ongoing may be warrented.
Interventions
Interventions:
*Risk Screen - Suicide Last Done: 07/19/25 08:06
*General Assessment Last Done: 07/19/25 08:06
*Neglect/Abuse Screening Last Done: 07/19/25 08:06
*ED- Fall Risk Assessment Last Done: 07/19/25 08:39
*ED COVID-19 Vaccine History Last Done: 07/19/25 08:39
*ED Influenza Vaccine History Last Done: 07/19/25 08:08
*Nursing Disposition Last Done: 07/19/25 11:54
YN-Yzcrep-Aovmteyagf Assessment Last Done: 07/19/25 08:38
ED-Female Genitourinary Assessment Last Done: 07/19/25 08:38
Discharge Date and Time
Discharge Date/Time: 07/19/25 12:07
Print Language: CONGOLESE
[2025-07-19 08:38] VITALS: BMI 33.2
[2025-07-19 08:42] VITALS: BP 156/67
[2025-07-19 09:06] LABS: Hematocrit 41.3 % (37.0-47.0); Hemoglobin 12.9 g/dL (12.0-16.0); Mean Corp Hgb Conc. 31.2 g/dL (33.0-37.0); Mean Corpuscular Volume 102.7 fL (81.0-99.0); Nucleated Red Blood Cells % 0 %; Platelet Count 305 10^3/uL (130-400); Red Cell Dist. Width 13.3 % (11.5-14.5)
[2025-07-19 09:31] LABS: ALT (SGPT) 21 U/L (0-35); AST (SGOT) 25 U/L (14-36); Albumin 4.3 g/dl (3.5-5.0); Alkaline Phosphatase 84 U/L (38-126); Blood Urea Nitrogen 7 mg/dl (7-17); Calcium 9.4 mg/dl (8.4-10.2); Carbon Dioxide 28 mmol/L (22-30); Chloride 106 mmol/L (98-107); Estimated Creatinine Clearance 63 ml/min; Glucose 110 mg/dl (70-99); Potassium 4.3 mmol/L (3.5-5.1); Sodium 137 mmol/L (135-145); Total Protein 6.7 g/dl (6.3-8.2); eGFR > 60.00
[2025-07-19 10:31] VITALS: BP 156/62
[2025-07-19] MEDS: TORADOL 15 MG IV (10:32)
[2025-07-19 10:48] LABS: Urine Character Clear (Clear)
--- NOTE | 2025-07-19 11:53 | EDRN ---
Reviewed discharge instructions with patient. Verbalized understanding.
[2025-07-19 11:54] VITALS: BP 147/56
== END 2025-07-19 12:07 | disposition home or self-care (01) ==
LOC: EMR 08:00
PROVIDERS: EMERGENCY PHYSICIAN Emergency Medicine; FAMILY PHYSICIAN Family Medicine
DX: R10.9 Unspecified abdominal pain (principal); R31.9 Hematuria, unspecified; N39.0 Urinary tract infection, site not specified; R03.0 Elevated blood-pressure reading, without diagnosis of hypertension; K21.9 Gastro-esophageal reflux disease without esophagitis; M51.35 Other intervertebral disc degeneration, thoracolumbar region; E78.00 Pure hypercholesterolemia, unspecified; K44.9 Diaphragmatic hernia without obstruction or gangrene; G47.419 Narcolepsy without cataplexy; M54.9 Dorsalgia, unspecified; I25.10 Atherosclerotic heart disease of native coronary artery without angina pectoris; G89.29 Other chronic pain; I73.9 Peripheral vascular disease, unspecified; Z87.891 Personal history of nicotine dependence; Z88.0 Allergy status to penicillin; Z88.2 Allergy status to sulfonamides; Z88.8 Allergy status to other drugs, medicaments and biological substances
CPT/HCPCS: 99284; 96374; 74176; 80053; 81003; 81015; 85025; 87086

== ENCOUNTER 2025-07-27 08:09 | Outpatient (RCR) | payer BC, SELFPAY | END 2025-07-27 23:59 | disposition home or self-care (01) | LOC: RPT 08:09 | PROVIDERS: ATTENDING PHYSICIAN Orthopaedic Surgery; FAMILY PHYSICIAN Family Medicine | DX: M17.0 Bilateral primary osteoarthritis of knee (principal); Z73.6 Limitation of activities due to disability; M62.81 Muscle weakness (generalized); R26.89 Other abnormalities of gait and mobility; M25.562 Pain in left knee; M25.561 Pain in right knee | CPT/HCPCS: 97110; 97112 ==

== ENCOUNTER → 2025-08-13 09:16 | Outpatient (REF) | payer BC, SELFPAY ==
[2025-08-13 11:58] LABS: Blood Urea Nitrogen 9 mg/dl (7-17); Calcium 9.6 mg/dl (8.4-10.2); Carbon Dioxide 31 mmol/L (22-30); Chloride 102 mmol/L (98-107); Glucose 94 mg/dl (70-99); Potassium 4.2 mmol/L (3.5-5.1); Sodium 138 mmol/L (135-145); eGFR > 60.00
== END ==
LOC: REG 09:16
PROVIDERS: ATTENDING PHYSICIAN Student in an Organized Health Care Education/Training Program; FAMILY PHYSICIAN Family Medicine
DX: R31.0 Gross hematuria (principal)
CPT/HCPCS: 36415; 80048

== ENCOUNTER → 2025-08-14 13:14 | Outpatient (REF) | payer BC, SELFPAY | LOC: WDC 13:14 | PROVIDERS: ATTENDING PHYSICIAN Family Medicine | DX: Z12.39 Encounter for other screening for malignant neoplasm of breast (principal); Z12.31 Encounter for screening mammogram for malignant neoplasm of breast | CPT/HCPCS: 77063; 77067 ==

== ENCOUNTER → 2025-08-16 14:50 | Outpatient (REF) | payer BC, SELFPAY | LOC: CLAB 14:50 | PROVIDERS: ATTENDING PHYSICIAN Student in an Organized Health Care Education/Training Program | DX: R31.0 Gross hematuria (principal) | CPT/HCPCS: 88112 ==

== ENCOUNTER → 2025-08-17 12:10 | Outpatient (REF) | payer BC, SELFPAY | LOC: RAD 12:10 | PROVIDERS: ATTENDING PHYSICIAN Student in an Organized Health Care Education/Training Program; FAMILY PHYSICIAN Family Medicine | DX: R31.0 Gross hematuria (principal) | CPT/HCPCS: 74178; Q9967 ==